=== PATIENT | female | born 1950 ===

== ENCOUNTER 2016-10-26 13:21 | Observation (INO) | payer MEDICARE, OTHER ==
[2016-10-26 13:21] VITALS: BMI 37.8
[2016-10-26] MEDS ORDERED: ceFAZolin 1 GM in Sodium Chloride 0.9% 100 ML IVPB STA (13:54)
[2016-10-26 14:43] LABS: BASO # 0.1 K/uL (0.0-0.2); BASO % 0.9 % (0.0-2.0); EOS # 0.2 K/uL (0.0-0.7); EOS % 3.7 % (0.0-4.0); HEMATOCRIT 43.6 % (34.0-47.0); LYMPH # 1.6 K/uL (1.0-4.3); LYMPH % 23.6 % (20.0-40.0); MEAN CELL VOLUME 85.2 fl (81.0-99.0); MEAN CORPUSCULAR HEMOGLOBIN 28.5 pg (27.0-31.0); MEAN CORPUSCULAR HGB CONC 33.4 g/dL (33.0-37.0); MEAN PLATELET VOLUME 8.9 fl (7.2-11.7); MONO # 0.4 K/uL (0.0-0.8); MONO % 6.1 % (0.0-10.0); NEUT # 4.4 K/uL (1.8-7.0); NEUT % 65.7 % (50.0-75.0); NRBC % 0.2 % (0.0-0.0); RED CELL DISTRIBUTION WIDTH 14.5 % (11.5-14.5); WHITE BLOOD COUNT 6.7 K/uL (4.8-10.8)
[2016-10-26 14:48] LABS: GFR AFRICAN-AMERICAN > 60
--- NOTE | 2016-10-26 14:50 | ED PDOC ---
HPI: Skin/Bite Injury Time Seen by Provider: 10/26/16 13:30 Chief Complaint (Nursing): Abnormal Skin Integrity Chief Complaint (Provider): Abnormal Skin Integrity History Per: Patient History/Exam Limitations: no limitations Onset/Duration Of Symptoms: Days (x2 days) Current Symptoms Are (Timing): Still Present Additional Complaint(s): 66 y/o female with a past history of diabetes (insulin dependant) who presents to the emergency department with a complaint of swelling and redness of the face x2 days. Patient states it first started at the chin but progressively getting worse and spreading throughout the face. Denies pain or itchiness. PMD: Dr. Denita Saxena MD Past Medical History Reviewed: Historical Data, Nursing Documentation, Vital Signs Vital Signs: Last Vital Signs Temp 96.9 F L 10/26/16 13:25 Pulse 89 10/26/16 13:25 Resp 21 10/26/16 13:25 BP 149/61 10/26/16 13:25 Pulse Ox 97 10/26/16 14:53 - Medical History PMH: Diabetes, HTN, Hypercholesterolemia - Surgical History Surgical History: Cholecystectomy - Family History Family History: States: Diabetes - Home Medications Home Medications: Ambulatory Orders Medication Instructions Recorded Ergocalciferol [Vitamin D2] 400 iu PO QWK 09/22/14 Glimepiride 4 mg PO BID 09/22/14 Lisinopril/Hydrochlorothiazide 1 tab PO DAILY 09/22/14 [Lisinopril-Hydrochlorothiazide 12.5 mg-10 mg] MetFORMIN [glucoPHAGE] 1,000 mg PO BID 09/22/14 Simvastatin 20 mg PO DAILY 09/22/14 Hydrocodone/Ibuprofen [Vicoprofen 1 tab PO Q6H #15 tab 01/08/15 7.5 mg-200 mg] traMADol [Ultram] 50 mg PO Q8 #20 tab 09/26/15 Methylprednisolone [Medrol Dose 4 mg PO DAILY #21 mg 07/12/16 Pack (21 tabs)] DiphenhydrAMINE [Benadryl] 1 - 2 cap PO Q6 PRN #30 cap 09/16/16 Methylprednisolone [Medrol Dose 4 mg PO DAILY #21 mg 09/16/16 Pack (21 tabs)] - Allergies Allergies/Adverse Reactions: Allergies Allergy/AdvReac Type Severity Reaction Status Date / Time acetaminophen [From Tylenol] Allergy RASH Verified 09/26/15 10:17 Review of Systems ROS Statement: Except As Marked, All Systems Reviewed And Found Negative Skin: Positive for: Other (Swelling and redness of the face and chin. Denies pain or itchiness) Physical Exam - Reviewed Nursing Documentation Reviewed: Yes Vital Signs Reviewed: Yes - Physical Exam Appears: Positive for: Non-toxic, No Acute Distress Skin: Negative for: Normal Color (Induration noted along the chin with redness noted along the mallar surfaces and above the right eye. No dental tenderness noted.) Neurologic/Psych: Positive for: Alert, Oriented - Laboratory Results Result Diagrams: 10/26/16 14:12 10/26/16 14:12 - ECG ECG Rhythm: Positive for: Sinus Rhythm (NSR 74BPM NO ECTOPY; NO ACUTE CHANGES) O2 Sat by Pulse Oximetry: 97 (RA) Pulse Ox Interpretation: Normal - Progress ED Course And Treament: ANCEF 1 GM IV X 1 DOS POTASSIUM ELEVATED. EKG: NSR 74BPM; NO ECTOPY; NO ACUTE CHANGES INSULIN 8 UNITS IV GIVEN; NS 1 LITER 500ML PER HOUR D/W MESERET SUMMERS NP Medical Decision Making Medical Decision Making: Time: 13:30 Initial impression: Cellulitis Initial plan: --COMP Metabolic Panel --Lact Acid, Plasma --CBC w/ differential --Ancef 1 gm/NS 100 ml Stat --Blood Culture Stat --Revaluation Scribe Attestation: Documented by Sommer Silva, acting as a scribe for Sherlyn marina PA-C. Provider Scribe Attestation: All medical record entries made by the Scribe were at my direction and personally dictated by me. I have reviewed the chart and agree that the record accurately reflects my personal performance of the history, physical exam, medical decision making, and the department course for this patient. I have also personally directed, reviewed, and agree with the discharge instructions and disposition. Disposition - Clinical Impression Clinical Impression: Cellulitis, Cellulitis, Hyperglycemia - Patient ED Disposition Is Patient to be Admitted: Yes - Disposition Disposition Time: 16:54 Condition: FAIR
[2016-10-26 15:11] LABS: CHLORIDE 97 mmol/L (98-107)
[2016-10-26 15:12] LABS: SODIUM 136 mmol/l (132-148)
[2016-10-26 15:14] LABS: ALB/GLOB RATIO 1.2 (1.0-2.1); ALKALINE PHOSPHATASE 85 U/L (38-126); AST/SGOT 34 U/L (14-36); BILIRUBIN,TOTAL 0.7 mg/dl (0.2-1.3); BLOOD UREA NITROGEN 20 mg/dl (7-17); CARBON DIOXIDE 28 mmol/L (22-30); TOTAL PROTEIN 7.2 G/DL (6.3-8.2)
[2016-10-26 15:15] LABS: ALT/SGPT 35 U/L (9-52); CALCIUM 9.5 mg/dL (8.4-10.2)
[2016-10-26 15:29] LABS: GLUCOSE,RANDOM 403 mg/dL (65-105)
[2016-10-26 15:30] LABS: POTASSIUM 5.6 MMOL/L (3.6-5.0)
[2016-10-26] MEDS ORDERED: Insulin Regular 100 units/ml IV STA (15:42)
[2016-10-26] MEDS ORDERED: Sodium Chloride 0.9% 1,000 ML IV STA (15:43)
[2016-10-26] MEDS ORDERED: Insulin Regular 100 units/ml ONE (15:47)
[2016-10-26] MEDS ORDERED: ceFAZolin 1 GM in Sodium Chloride 0.9% 100 ML IVPB SCH (17:00)
[2016-10-26 20:00] VITALS: RESP 20
[2016-10-26] MEDS ORDERED: Pneumococcal 23-Valent Vaccine IM ONE (21:00)
[2016-10-26] MEDS: Insulin Regular 100 units/ml SC SCH (22:12)
[2016-10-26] MEDS: ceFAZolin 1 GM in Sodium Chloride 0.9% 100 ML IVPB SCH (22:22)
[2016-10-27] MEDS: ceFAZolin 1 GM in Sodium Chloride 0.9% 100 ML IVPB SCH (06:02)
[2016-10-27] MEDS: Insulin Regular 100 units/ml SC SCH ×2 (07:08→12:19)
--- NOTE | 2016-10-27 07:35 | CP.PCM.HP ---
History of Present Illness - History of Present Illness History of Present Illness: pt admitted for facial cellulitis, was initially tx w/ topical steroids for rash to face. at present feels better. denies resp or swalling difficulties. no f/c, n/v/d. bw noted. no wbc. glucose elevated. 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 Present on Admission - Present on Admission Any Indicators Present on Admission: Yes History of Uncontrolled Diabetes: Yes Review of Systems - Integumentary Integumentary: As Per HPI, Erythema Past Patient History - Infectious Disease Hx of Infectious Diseases: None - Past Medical History & Family History Past Medical History?: Yes - Past Social History Smoking Status: Never Smoked - CARDIAC Hx Hypercholesterolemia: Yes Hx Hypertension: Yes - PULMONARY Hx Respiratory Disorders: No - NEUROLOGICAL Hx Neurological Disorder: No - HEENT Hx HEENT Problems: Yes - ENDOCRINE/METABOLIC Hx Endocrine Disorders: Yes - HEMATOLOGICAL/ONCOLOGICAL Hx Blood Disorders: No - INTEGUMENTARY Hx Dermatological Problems: No - MUSCULOSKELETAL/RHEUMATOLOGICAL Hx Musculoskeletal Disorders: No - GASTROINTESTINAL Hx Gastrointestinal Disorders: No - GENITOURINARY/GYNECOLOGICAL Hx Genitourinary Disorders: No - PSYCHIATRIC Hx Psychophysiologic Disorder: No - SURGICAL HISTORY Hx Cholecystectomy: Yes - ANESTHESIA Hx Anesthesia: Yes Hx Anesthesia Reactions: No Hx Malignant Hyperthermia: No Meds Home Medications: Home Medication List Medication Instructions Recorded Confirmed Type Cephalexin [cephalexin] 500 mg PO Q8 #18 cap 10/27/16 Rx Allergies/Adverse Reactions: Allergies Allergy/AdvReac Type Severity Reaction Status Date / Time acetaminophen [From Tylenol] Allergy RASH Verified 09/26/15 10:17 Physical Exam - Constitutional Appears: Well, Non-toxic, No Acute Distress - Head Exam Head Exam: ATRAUMATIC, NORMAL INSPECTION, NORMOCEPHALIC - Eye Exam Eye Exam: EOMI, Normal appearance, PERRL Pupil Exam: NORMAL ACCOMODATION, PERRL - ENT Exam ENT Exam: Mucous Membranes Moist, Normal Exam - Neck Exam Neck exam: Positive for: Normal Inspection - Respiratory Exam Respiratory Exam: Clear to Auscultation Bilateral, NORMAL BREATHING PATTERN - Cardiovascular Exam Cardiovascular Exam: REGULAR RHYTHM, RRR, +S1, +S2 - GI/Abdominal Exam GI & Abdominal Exam: Normal Bowel Sounds, Soft. absent: Tenderness - Extremities Exam Extremities exam: Positive for: full ROM, normal capillary refill, normal inspection, pedal pulses present - Back Exam Back exam: NORMAL INSPECTION - Neurological Exam Neurological exam: Alert, CN II-XII Intact, Normal Gait, Oriented x3, Reflexes Normal - Psychiatric Exam Psychiatric exam: Normal Affect, Normal Mood - Skin Skin Exam: Dry, Intact, Normal Color, Warm Results - Vital Signs Recent Vital Signs: Last Vital Signs Temp 98.4 F 10/26/16 19:59 Pulse 72 10/26/16 19:59 Resp 20 10/26/16 19:59 BP 99/62 L 10/26/16 19:59 Pulse Ox 96 10/26/16 19:59 - Labs Result Diagrams: 10/27/16 05:50 10/27/16 05:50 Labs: Laboratory Results - last 24 hr 10/26/16 10/26/16 10/26/16 16:42 17:59 21:47 Potassium 4.1 POC Glucose (mg/dL) 236 H 253 H 10/27/16 06:01 Potassium POC Glucose (mg/dL) 246 H Assessment & Plan (1) Facial cellulitis Assessment and Plan: ancef ivf pain control ?? dc today Status: Acute (2) DVT prophylaxis Assessment and Plan: scd ernestina e hose ambulation Status: Acute (3) Type 2 diabetes mellitus with hyperglycemia Assessment and Plan: riss fsbg, home meds Status: Acute Decision To Admit - Pt Status Changed To: Hospital Disposition Of: Observation - . Bed Request Type: Med/Surg Admitting Physician: John Sanabria
[2016-10-27 07:50] LABS: BASO % 0.5 % (0.0-2.0); EOS # 0.3 K/uL (0.0-0.7); HEMATOCRIT 43.5 % (34.0-47.0); LYMPH % 29.5 % (20.0-40.0); MEAN CELL VOLUME 85.2 fl (81.0-99.0); MEAN CORPUSCULAR HEMOGLOBIN 28.3 pg (27.0-31.0); MEAN CORPUSCULAR HGB CONC 33.2 g/dL (33.0-37.0); MEAN PLATELET VOLUME 9.7 fl (7.2-11.7); MONO # 0.5 K/uL (0.0-0.8); MONO % 6.8 % (0.0-10.0); NEUT % 59.2 % (50.0-75.0); NRBC % 0.1 % (0.0-0.0); RED CELL DISTRIBUTION WIDTH 14.5 % (11.5-14.5); WHITE BLOOD COUNT 6.7 K/uL (4.8-10.8)
[2016-10-27] MEDS ORDERED: GlipiZIDE 10 mg SR Tab PO SCH (08:00)
[2016-10-27 08:01] VITALS: BP 122/79; PULSE 68; TEMP 97.9; O2SAT 95
[2016-10-27 08:08] LABS: ALB/GLOB RATIO 1.1 (1.0-2.1); ALKALINE PHOSPHATASE 76 U/L (38-126); ALT/SGPT 29 U/L (9-52); AST/SGOT 28 U/L (14-36); BILIRUBIN,TOTAL 0.5 mg/dl (0.2-1.3); BLOOD UREA NITROGEN 18 mg/dl (7-17); CALCIUM 9.1 mg/dL (8.4-10.2); CARBON DIOXIDE 28 mmol/L (22-30); CHLORIDE 101 mmol/L (98-107); GFR AFRICAN-AMERICAN > 60; GLUCOSE,RANDOM 233 mg/dL (65-105); POTASSIUM 4.5 MMOL/L (3.6-5.0); SODIUM 142 mmol/l (132-148); TOTAL PROTEIN 6.9 G/DL (6.3-8.2)
[2016-10-27] MEDS ORDERED: Patient's Own Med (Lisinopril/Hydrochlorothiazide [Lisinopril-Hctz 10-12.5 Mg Tab] 1 TAB) PO SCH (09:00)
--- NOTE | 2016-10-27 13:11 | CP.PCM.DIS ---
Provider - Provider Date of Admission: 10/26/16 16:17 Attending physician: John Sanabria MD Time Spent in preparation of Discharge (in minutes): 15 Diagnosis - Discharge Diagnosis (1) Facial cellulitis Status: Acute (2) DVT prophylaxis Status: Acute (3) Type 2 diabetes mellitus with hyperglycemia Status: Acute Hospital Course - Lab Results Lab Results: Most Recent Lab Values WBC 6.7 K/uL (4.8-10.8) 10/27/16 05:50 RBC 5.11 Mil/uL (3.80-5.20) 10/27/16 05:50 Hgb 14.5 g/dL (12.0-16.0) 10/27/16 05:50 Hct 43.5 % (34.0-47.0) 10/27/16 05:50 MCV 85.2 fl (81.0-99.0) 10/27/16 05:50 MCH 28.3 pg (27.0-31.0) 10/27/16 05:50 MCHC 33.2 g/dL (33.0-37.0) 10/27/16 05:50 RDW 14.5 % (11.5-14.5) 10/27/16 05:50 Plt Count 160 K/uL (130-400) 10/27/16 05:50 MPV 9.7 fl (7.2-11.7) 10/27/16 05:50 Neut % (Auto) 59.2 % (50.0-75.0) 10/27/16 05:50 Lymph % (Auto) 29.5 % (20.0-40.0) 10/27/16 05:50 [place] % (Auto) 6.8 % (0.0-10.0) 10/27/16 05:50 Eos % (Auto) 4.0 % (0.0-4.0) 10/27/16 05:50 Baso % (Auto) 0.5 % (0.0-2.0) 10/27/16 05:50 Neut # 4.0 K/uL (1.8-7.0) 10/27/16 05:50 Lymph # 2.0 K/uL (1.0-4.3) 10/27/16 05:50 [place] # 0.5 K/uL (0.0-0.8) 10/27/16 05:50 Eos # 0.3 K/uL (0.0-0.7) 10/27/16 05:50 Baso # 0.0 K/uL (0.0-0.2) 10/27/16 05:50 Sodium 142 mmol/l (132-148) 10/27/16 05:50 Potassium 4.5 MMOL/L (3.6-5.0) 10/27/16 05:50 Chloride 101 mmol/L (98-107) 10/27/16 05:50 Carbon Dioxide 28 mmol/L (22-30) 10/27/16 05:50 Anion Gap 18 (10-20) 10/27/16 05:50 BUN 18 mg/dl (7-17) H 10/27/16 05:50 Creatinine 0.9 mg/dL (0.7-1.2) 10/27/16 05:50 Est GFR ( Amer) > 60 10/27/16 05:50 Est GFR (Non-Af Amer) > 60 10/27/16 05:50 POC Glucose (mg/dL) 365 mg/dL (65-110) H 10/27/16 10:42 Random Glucose 233 mg/dL (65-105) H 10/27/16 05:50 Lactic Acid 2.1 MMOL/L (0.7-2.1) 10/26/16 14:12 Calcium 9.1 mg/dL (8.4-10.2) 10/27/16 05:50 Total Bilirubin 0.5 mg/dl (0.2-1.3) 10/27/16 05:50 AST 28 U/L (14-36) 10/27/16 05:50 ALT 29 U/L (9-52) 10/27/16 05:50 Alkaline Phosphatase 76 U/L (38-126) 10/27/16 05:50 Total Protein 6.9 G/DL (6.3-8.2) 10/27/16 05:50 Albumin 3.6 g/dL (3.5-5.0) 10/27/16 05:50 Globulin 3.3 gm/dL (2.2-3.9) 10/27/16 05:50 Albumin/Globulin Ratio 1.1 (1.0-2.1) 10/27/16 05:50 Discharge Exam - Head Exam Head Exam: ATRAUMATIC, NORMAL INSPECTION, NORMOCEPHALIC Discharge Plan - Discharge Medications Prescriptions: Cephalexin [cephalexin] 500 mg PO Q8 #18 cap - Follow Up Plan Condition: GOOD Disposition: HOME/ ROUTINE Additional Instructions: patient cleared for discharge to home today , d/w Lakhwinder JAFFE f/u with pcp in 1 week pt . and family member at bedside instructed to return to ER if sx worsen, fever , chill, worsening rash Rx for Keflex provided final dx-facial cellulitis improving f/u pmd, rted prn, meds pe rmed rec Referrals: Denita Saxena, [facility] [Advanced Practice Nurse] -
--- NOTE | 2016-10-27 19:37 | CARD ---
APPROVED REPORT EKG Measurement Heart [id number] <Conclusion> Normal sinus rhythm Minimal voltage criteria for LVH, may be normal variant Borderline ECG
== END 2016-10-27 14:31 | disposition home or self-care (01) ==
LOC: H.ER 13:21 → H.ERHOLD 16:17 → H.MEDSURG1 17:13
PROVIDERS: ADMIT Family Medicine; ATTEND Family Medicine
DX: L03.211 Cellulitis of face (principal); E11.65 Type 2 diabetes mellitus with hyperglycemia; Z79.899 Other long term (current) drug therapy; I10 Essential (primary) hypertension; E78.00 Pure hypercholesterolemia, unspecified; Z23 Encounter for immunization; Z88.6 Allergy status to analgesic agent
CPT/HCPCS: 36415; 80053; 82948; 83605; 84132; 85025; 87040; 90732; 93005; 96360; 96361; 96365; 99283; G0009; G0378; J0690; J7040

== ENCOUNTER 2017-02-21 13:35 | Emergency (ER) | payer MEDICARE, OTHER ==
[2017-02-21 13:35] VITALS: BMI 37.8
[2017-02-21 14:06] VITALS: O2SAT 98
--- NOTE | 2017-02-21 14:47 | ED PDOC ---
HPI: Skin/Bite Injury Time Seen by Provider: 02/21/17 14:12 Chief Complaint (Nursing): Abnormal Skin Integrity Chief Complaint (Provider): facial rash History Per: Patient History/Exam Limitations: no limitations Onset/Duration Of Symptoms: Waxing/Waning (for 6 months), Worse Since (2 weeks) Location Of Injury: Right: Face, Left: Face, Anterior: Face Quality Of Symptoms: Itching, Swollen Additional Complaint(s): Facial rash ongoing for 6 months, with varying degrees of severity. Had been diagnosed with rosacea by a speech communication instructor in [place], but and it improved with topical steroid Also diagnosed with facial cellulitis in October, but no improvement after antibiotics. Intermittently improves with oral steroid but it causes her sugar to be very elevated. Last 2 weeks has developed increased swelling again, but also associated with itching with she has never had before. Denies fever, chills, throat/tongue swelling, chest pain or shortness of breath , or rash elsewhere. PMD: Dr Saxena Past Medical History Reviewed: Historical Data, Nursing Documentation, Vital Signs Vital Signs: Last Vital Signs Temp 98 F 02/21/17 14:04 Pulse 80 02/21/17 14:04 Resp 18 02/21/17 14:04 BP 146/66 02/21/17 14:04 Pulse Ox 98 02/21/17 14:52 - Medical History PMH: Diabetes, HTN, Hypercholesterolemia - Surgical History Surgical History: Cholecystectomy - Family History Family History: States: Diabetes - Social History Current smoker - smoking cessation education provided: No Alcohol: None - Home Medications Home Medications: Ambulatory Orders Medication Instructions Recorded Glimepiride 4 mg PO BID 09/22/14 Lisinopril/Hydrochlorothiazide 1 tab PO DAILY 09/22/14 [Lisinopril-Hctz 10-12.5 mg Tab] MetFORMIN [glucoPHAGE] 1,000 mg PO BID 09/22/14 Simvastatin 20 mg PO DAILY 09/22/14 Cephalexin [cephalexin] 500 mg PO Q8 #18 cap 10/27/16 Betamethasone Valerate 0.1% 1 appl TOP BID #1 tube 02/21/17 [Valisone] Clindamycin [Cleocin] 300 mg PO TID #30 cap 02/21/17 DiphenhydrAMINE [Benadryl] 25 mg PO Q6 PRN #30 cap 02/21/17 - Allergies Allergies/Adverse Reactions: Allergies Allergy/AdvReac Type Severity Reaction Status Date / Time acetaminophen [From Tylenol] Allergy RASH Verified 02/21/17 14:02 Review of Systems ROS Statement: Except As Marked, All Systems Reviewed And Found Negative (and as per HPI) Constitutional: Negative for: Fever, Chills ENT: Negative for: Mouth Swelling, Throat Pain Cardiovascular: Negative for: Chest Pain, Light Headedness Respiratory: Negative for: Cough, Shortness of Breath Skin: Positive for: Rash Physical Exam - Reviewed Nursing Documentation Reviewed: Yes Vital Signs Reviewed: Yes - Physical Exam Appears: Positive for: Non-toxic, No Acute Distress Head Exam: Positive for: ATRAUMATIC, NORMOCEPHALIC Skin: Positive for: Warm, Dry, Rash (Blanching erythematous edematous rash to chin, nose, malar area and mid forehead with indurated areas especially to chin , nasal bridge and midline forehead. No tenderness. No fluctuance. No discrete lesions/papules.) Eye Exam: Positive for: EOMI, PERRL ENT: Negative for: Pharyngeal Erythema, Tonsillar Exudate Neck: Positive for: Painless ROM, Supple Cardiovascular/Chest: Positive for: Regular Rate, Rhythm, Chest Non Tender. Negative for: Murmur Respiratory: Positive for: Normal Breath Sounds. Negative for: Respiratory Distress Extremity: Positive for: Normal ROM. Negative for: Pedal Edema Lymphatic: Negative for: Adenopathy Neurologic/Psych: Positive for: Alert. Negative for: Motor/Sensory Deficits - Laboratory Results Result Diagrams: 02/21/17 15:33 02/21/17 15:33 Interpretation Of Abn Labs: Minimally elevated BUN and glucose. No emergently critical lab abnormalities - ECG O2 Sat by Pulse Oximetry: 98 Pulse Ox Interpretation: Normal Medical Decision Making Medical Decision Making: Facial erythema/edema/induration ongoing for months with unclear etiology. Will treat as both inflammatory and infectious process for now, but pt needs to revisit speech communication instructor for further management. ANKITA pt findings and plan of care. Disposition - Clinical Impression Clinical Impression: Facial rash Counseled Patient/Family Regarding: Studies Performed, Diagnosis, Need For Followup, Rx Given - Disposition Referrals: Sophia Saxena MD [Family Provider] - [facility] [Outside] (VISITA UN SPECIALIST DE PIEL EN 2-3 LAZO POR MAS EVALUACIONES Y TRATIMIENTE.) Disposition: Routine/Home Disposition Time: 16:19 Condition: STABLE Additional Instructions: IT IS VERY IMPORTANT YOU SEE A RIP/MOULD OPERATOR FOR FURTHER TREATMENT OF YOUR CONDITION CHECK YOUR SUGAR FREQUENTLY FOR THE NEXT 2 WEEKS BECAUSE STEROIDC CAN CAUSE INCREASE IN SUGAR FOLLOW STRICT DIABETIC DIET FOR NEXT 2 WEEKS. ES MUY IMPORTANTE ARIC UN DERMATLOGO PARA TRATAMIENTO ADICIONAL DE RANDALL CONDICIN COMPRUEBE RANDALL AZCAR FRECUENTEMENTE POR LAS PROXIMAS 2 SEMANAS PORQUE ESTEROIDES PUEDE CAUSAR AUMENTO EN AZCAR SIGUE DAVID DIETA DIABTICA ESTRICTA PARA LAS PROXIMAS 2 SEMANAS. Prescriptions: Betamethasone Valerate 0.1% [Valisone] 1 appl TOP BID #1 tube Clindamycin [Cleocin] 300 mg PO TID #30 cap DiphenhydrAMINE [Benadryl] 25 mg PO Q6 PRN #30 cap PRN Reason: Itching / Pruritus Instructions: Dermatitis (ED) Print Language: NIGERIAN
[2017-02-21] MEDS ORDERED: DiphenhydrAMINE 50 mg/ml Inj IVP STA (14:56)
[2017-02-21] MEDS ORDERED: Clindamycin 600 MG in Sodium Chloride 0.9% 100 ML IVPB STA (14:56)
[2017-02-21] MEDS ORDERED: DiphenhydrAMINE 50 mg/ml Inj ONE (15:38)
[2017-02-21 15:41] LABS: BASO # 0.1 K/uL (0.0-0.2); BASO % 1.2 % (0.0-2.0); EOS # 0.2 K/uL (0.0-0.7); EOS % 3.8 % (0.0-4.0); HEMATOCRIT 41.7 % (34.0-47.0); LYMPH # 1.6 K/uL (1.0-4.3); LYMPH % 25.1 % (20.0-40.0); MEAN CELL VOLUME 84.7 fl (81.0-99.0); MEAN CORPUSCULAR HEMOGLOBIN 28.2 pg (27.0-31.0); MEAN CORPUSCULAR HGB CONC 33.3 g/dL (33.0-37.0); MEAN PLATELET VOLUME 8.4 fl (7.2-11.7); MONO # 0.4 K/uL (0.0-0.8); MONO % 6.5 % (0.0-10.0); NEUT # 4.1 K/uL (1.8-7.0); NEUT % 63.4 % (50.0-75.0); RED CELL DISTRIBUTION WIDTH 14.1 % (11.5-14.5); WHITE BLOOD COUNT 6.5 K/uL (4.8-10.8)
[2017-02-21 15:58] LABS: ALB/GLOB RATIO 1.2 (1.0-2.1); ALKALINE PHOSPHATASE 62 U/L (38-126); ALT/SGPT 39 U/L (9-52); AST/SGOT 38 U/L (14-36); BILIRUBIN,TOTAL 0.7 mg/dl (0.2-1.3); BLOOD UREA NITROGEN 23 mg/dl (7-17); CALCIUM 9.2 mg/dL (8.4-10.2); CARBON DIOXIDE 23 mmol/L (22-30); CHLORIDE 104 mmol/L (98-107); GFR AFRICAN-AMERICAN > 60; GLUCOSE,RANDOM 162 mg/dL (65-105); SODIUM 137 mmol/l (132-148); TOTAL PROTEIN 7.5 G/DL (6.3-8.2)
[2017-02-21 16:01] LABS: POTASSIUM 4.9 MMOL/L (3.6-5.0)
[2017-02-21 16:53] VITALS: BP 140/71; PULSE 72; RESP 16; TEMP 98
== END 2017-02-21 16:53 | disposition home or self-care (01) ==
LOC: H.ER 13:35
DX: L03.211 Cellulitis of face (principal); E11.9 Type 2 diabetes mellitus without complications; E78.00 Pure hypercholesterolemia, unspecified; I10 Essential (primary) hypertension; Z79.84 Long term (current) use of oral hypoglycemic drugs
CPT/HCPCS: 80053; 82948; 83516; 83605; 85025; 86038; 86160; 86235; 86376; 86431; 87040; 96374; 96375; 99282; J1200; J2930

== ENCOUNTER 2017-04-15 12:30 | Emergency (ER) | payer MEDICARE, OTHER ==
[2017-04-15 12:31] VITALS: BMI 37.8
[2017-04-15 12:38] VITALS: BP 158/63; PULSE 98; RESP 16; TEMP 98; O2SAT 98
--- NOTE | 2017-04-15 12:56 | ED PDOC ---
HPI: Allergic Reaction Time Seen by Provider: 04/15/17 12:38 Chief Complaint (Nursing): Allergic Reaction Chief Complaint (Provider): Rash History Per: Patient History/Exam Limitations: no limitations Onset/Duration Of Symptoms: Days (x2 months) Additional Complaint(s): Elisha Allen is a 66 year old female presenting to the ED for an evaluation of a red rash on her face occurring for 2 months, reporting this rash has been coming and going chronically for 9 months prior to arrival. She states she has previously been admitted for cellulitis and was on IV antibiotics. She is currently on Zyrtec, topical fungal medication, and doxycycline prescribed by her caregivers homecare, taken without relief. The patient is complaining of itchiness which prompted her ED visit today. PMD: Abel Leyva MD Past Medical History Reviewed: Historical Data, Nursing Documentation, Vital Signs Vital Signs: Last Vital Signs Temp 98.0 F 04/15/17 12:34 Pulse 98 H 04/15/17 12:34 Resp 16 04/15/17 12:34 BP 158/63 H 04/15/17 12:34 Pulse Ox 98 04/15/17 12:34 - Medical History PMH: Diabetes, HTN, Hypercholesterolemia - Surgical History Surgical History: Cholecystectomy - Family History Family History: States: Diabetes - Home Medications Home Medications: Ambulatory Orders Medication Instructions Recorded Glimepiride 4 mg PO BID 09/22/14 Lisinopril/Hydrochlorothiazide 1 tab PO DAILY 09/22/14 [Lisinopril-Hctz 10-12.5 mg Tab] MetFORMIN [glucoPHAGE] 1,000 mg PO BID 09/22/14 Simvastatin 20 mg PO DAILY 09/22/14 Cephalexin [cephalexin] 500 mg PO Q8 #18 cap 10/27/16 Betamethasone Valerate 0.1% 1 appl TOP BID #1 tube 02/21/17 [Valisone] Clindamycin [Cleocin] 300 mg PO TID #30 cap 02/21/17 DiphenhydrAMINE [Benadryl] 25 mg PO Q6 PRN #30 cap 02/21/17 hydrOXYzine Pamoate [Vistaril] 50 mg PO BID PRN #15 cap 04/15/17 predniSONE [predniSONE Tab] 20 mg PO DAILY #12 tab 09/24/17 - Allergies Allergies/Adverse Reactions: Allergies Allergy/AdvReac Type Severity Reaction Status Date / Time acetaminophen [From Tylenol] Allergy RASH Verified 02/21/17 14:02 Review of Systems ROS Statement: Except As Marked, All Systems Reviewed And Found Negative Skin: Positive for: Rash (associated with itchiness to face) Physical Exam - Reviewed Nursing Documentation Reviewed: Yes Vital Signs Reviewed: Yes - Physical Exam Appears: Positive for: Non-toxic, No Acute Distress Head Exam: Positive for: ATRAUMATIC, NORMOCEPHALIC Skin: Positive for: Rash (pruritic rash to face) Neurologic/Psych: Positive for: Alert, Oriented - ECG O2 Sat by Pulse Oximetry: 98 (RA) Pulse Ox Interpretation: Normal Disposition - Clinical Impression Clinical Impression: Rash - Disposition Disposition Time: 13:25 Condition: STABLE Additional Instructions: Continue current medications Prescriptions: hydrOXYzine Pamoate [Vistaril] 50 mg PO BID PRN #15 cap PRN Reason: Itching / Pruritus predniSONE [predniSONE Tab] 20 mg PO DAILY #12 tab Instructions: Dermatitis (ED) Forms: [employer] (Tajik) Print Language: MALTESE Medical Decision Making Medical Decision Making: Time: 12:38 Impression: Pruritic rash to face Plan: * SOLU-Medrol 125 mg IM * Vistaril 50 mg PO Discussed with pt to take medications as prescribed and to follow up with caregivers homecare. Scribe Attestation: Documented by Maria E Fuller, acting as a scribe for Gloria Smith PA-C. Provider Scribe Attestation: All medical record entries made by the Scribe were at my direction and personally dictated by me. I have reviewed the chart and agree that the record accurately reflects my personal performance of the history, physical exam, medical decision making, and the department course for this patient. I have also personally directed, reviewed, and agree with the discharge instructions and disposition.
== END 2017-04-15 13:41 | disposition home or self-care (01) ==
LOC: H.ER 12:30
DX: T78.40XA Allergy, unspecified, initial encounter (principal)
CPT/HCPCS: 96372; 99282; J2930; Q0177

== ENCOUNTER 2018-05-11 08:28 | Emergency (ER) | payer OTHER ==
[2018-05-11 08:37] VITALS: BMI 40.1
[2018-05-11 10:14] LABS: BASO # 0.1 K/uL (0.0-0.2); BASO % 1.1 % (0.0-2.0); EOS # 0.3 K/uL (0.0-0.7); HEMOGLOBIN 15.1 g/dL (12.0-16.0); LYMPH # 1.8 K/uL (1.0-4.3); LYMPH % 26.4 % (20.0-40.0); MEAN CELL VOLUME 86.6 fl (81.0-99.0); MEAN CORPUSCULAR HEMOGLOBIN 28.7 pg (27.0-31.0); MEAN CORPUSCULAR HGB CONC 33.1 g/dL (33.0-37.0); MEAN PLATELET VOLUME 8.1 fl (7.2-11.7); MONO # 0.4 K/uL (0.0-0.8); MONO % 6.5 % (0.0-10.0); NEUT # 4.1 K/uL (1.8-7.0); NRBC % 0.2 % (0.0-0.0); RBC 5.26 Mil/uL (3.80-5.20); RED CELL DISTRIBUTION WIDTH 14.7 % (11.5-14.5); WHITE BLOOD COUNT 6.7 K/uL (4.8-10.8)
[2018-05-11 10:17] LABS: BLOOD UREA NITROGEN 25 mg/dl (7-17); CALCIUM 9.5 mg/dL (8.4-10.2); GFR NON-AFRICAN AMERICAN 50
--- NOTE | 2018-05-11 10:37 | ED PDOC ---
HPI: Back Time Seen by Provider: 05/11/18 08:54 Chief Complaint (Nursing): Back Pain Chief Complaint (Provider): Back Pain History Per: Patient History/Exam Limitations: no limitations Onset/Duration Of Symptoms: Days (x1 month ) Current Symptoms Are (Timing): Constant Additional Complaint(s): 67 year old female with a history of hypertension and dm presents to the ED with constant lower back pain onset one month. Patient reports pain is worse with all movement, she is only comfortable when sitting. She took Advil for pain with little relief. Patient denies fever, abdominal pain, vomiting, urinary symptoms, or any other medical complaints. She has not seen a doctor for pain. PMD: Dr. Corona, [facility] Past Medical History Reviewed: Historical Data, Nursing Documentation, Vital Signs Vital Signs: Last Vital Signs Temp 97 F L 05/11/18 08:35 Pulse 81 05/11/18 08:35 Resp 20 05/11/18 08:35 BP 117/72 05/11/18 08:35 Pulse Ox 98 05/11/18 08:35 - Medical History PMH: Arthritis, Diabetes, HTN, Hypercholesterolemia - Surgical History Surgical History: Cholecystectomy - Family History Family History: States: Diabetes - Home Medications Home Medications: Ambulatory Orders Medication Instructions Recorded RX: Glimepiride 4 mg PO BID 09/22/14 RX: Lisinopril/Hydrochlorothiazide 1 tab PO DAILY 09/22/14 [Lisinopril-Hctz 10-12.5 mg Tab] RX: MetFORMIN [glucoPHAGE] 1,000 mg PO BID 09/22/14 RX: Simvastatin 20 mg PO DAILY 09/22/14 Cephalexin [cephalexin] 500 mg PO Q8 #18 cap 10/27/16 DiphenhydrAMINE [Benadryl] 25 mg PO Q6 PRN #30 cap 02/21/17 RX: Betamethasone Valerate 0.1% 1 appl TOP BID #1 tube 02/21/17 [Valisone] RX: Clindamycin [Cleocin] 300 mg PO TID #30 cap 02/21/17 RX: predniSONE [predniSONE Tab] 20 mg PO DAILY #12 tab 04/15/17 hydrOXYzine Pamoate [Vistaril] 50 mg PO BID PRN #15 cap 04/15/17 Cyclobenzaprine [Cyclobenzaprine 10 mg PO TID #15 tab 05/11/18 HCl] RX: Naproxen 375 mg PO Q8 PRN #21 tablet 05/11/18 - Allergies Allergies/Adverse Reactions: Allergies Allergy/AdvReac Type Severity Reaction Status Date / Time acetaminophen [From Tylenol] Allergy RASH Verified 04/13/18 13:27 Review of Systems ROS Statement: Except As Marked, All Systems Reviewed And Found Negative Musculoskeletal: Positive for: Back Pain (lower) Physical Exam - Reviewed Nursing Documentation Reviewed: Yes Vital Signs Reviewed: Yes - Physical Exam Appears: Positive for: Non-toxic, No Acute Distress Head Exam: Positive for: ATRAUMATIC, NORMOCEPHALIC Skin: Positive for: Normal Color, Warm, Dry Eye Exam: Positive for: Normal appearance, EOMI, PERRL Neck: Positive for: Normal, Painless ROM, Supple Cardiovascular/Chest: Positive for: Regular Rate, Rhythm. Negative for: Murmur Respiratory: Positive for: Normal Breath Sounds. Negative for: Respiratory Distress Gastrointestinal/Abdominal: Positive for: Normal Exam, Soft. Negative for: Tenderness Back: Positive for: Muscle Spasm, Other (Tenderness to palpation in paraspinal region of lower lumbar). Negative for: L CVA Tenderness, R CVA Tenderness Extremity: Positive for: Normal ROM (upper and lower). Negative for: Pedal Edema, Deformity - Laboratory Results Result Diagrams: 05/11/18 10:03 05/11/18 10:03 - ECG O2 Sat by Pulse Oximetry: 98 (RA) Pulse Ox Interpretation: Normal - Progress Re-evaluation Time: 12:00 Condition: Re-examined, Improved Medical Decision Making Medical Decision Making: Time: 922 Initial Impression: Acute chronic back pain Differential diagnoses include but are not limited: lumbar spine DJD, lumbar radiculopathy, arthritis, other conditions considered but not listed. Initial Plan: --CT lumbar spine --BMP --Urine dip --CBC with differentials --Erythrocyte sedimentation rate --Chest x-ray --Flexeril 10 mg PO --Morphine 2 mg IVP Time: 1036 Chest x-ray: FINDINGS: LUNGS: Minimal bibasilar atelectasis PLEURA: No significant pleural effusion identified, no pneumothorax apparent. CARDIOVASCULAR: Mild aortic atherosclerotic calcification present Normal. OSSEOUS STRUCTURES: No significant abnormalities. VISUALIZED UPPER ABDOMEN: Normal. OTHER FINDINGS: None. IMPRESSION: Minimal bibasilar atelectasis. Time: [address] FINDINGS: VERTEBRAE: No acute compression fractures nor retropulsed fragments. Minor chronic appearing anterior stature loss of several lower thoracic and upper lumbar segments felt to be degenerative in origin. Vertebral bodies otherwise exhibit relatively normal stature. Vertebral bodies and facets normally aligned. DISCS/SPINAL CANAL/NEURAL FORAMINA: L1-2: Mild posterior disc space narrowing. No disc herniation or significant disc bulge. L2-3: There is mild disc space narrowing with tiny chronic appearing Schmorl's node changes. Small broad-based disc bulge is present and results in some flattening of the ventral borders of the thecal sac however the overall central canal appears adequate. L3-4: Minor posterior disc space narrowing with mild broad-based bulge of the posterior annulus that extends slightly into the proximal inferior borders of both exit foramina.. No disc herniation L4-5: Disc space height maintained. No disc herniation however minor broad- based disc bulging changes most pronounced within the proximal inferior margins of both exit foramina. Facet joints mildly prominent. Central canal and exit foramina appear adequate . L5-S1: Disc space height relatively maintained. Minor broad-based bulge of the posterior annulus is present slightly larger on the left than right. The overall central bony canal appears adequate without evidence of compressive effects on the thecal sac or exiting nerve roots. Facet joints slightly overgrown. Left exit foramen is marginal to minimally narrowed. Right exit foramen is adequate.. PARASPINAL SOFT TISSUES: Unremarkable. OTHER FINDINGS: There is mild aortic atherosclerotic calcification and mural plaque IMPRESSION: No acute fractures. Mild multilevel degenerative spondylosis without significant central canal or foraminal stenosis. ----- Scribe Attestation: Documented by Mickie Fuller, acting as a scribe for Connie Partida MD Provider Scribe Attestation: All medical record entries made by the Scribe were at my direction and personally dictated by me. I have reviewed the chart and agree that the record accurately reflects my personal performance of the history, physical exam, medical decision making, and the department course for this patient. I have also personally directed, reviewed, and agree with the discharge instructions and dis position. Disposition - Clinical Impression Clinical Impression: Back pain - Patient ED Disposition Is Patient to be Admitted: No Doctor Will See Patient In The: Office Counseled Patient/Family Regarding: Studies Performed, Diagnosis, Need For Followup - Disposition Referrals: [facility] [Outside] Disposition: Routine/Home Disposition Time: 12:00 Condition: GOOD Additional Instructions: MADIHA ERYNAGA, thank you for letting us take care of you today. Your provider was Connie Partida MD and you were treated for BACK PAIN. The emergency medical care you received today was directed at your acute symptoms. If you were prescribed any medication, please fill it and take as directed. It may take several days for your symptoms to resolve. Return to the Emergency Department if your symptoms worsen, do not improve, or if you have any other problems. Please contact your doctor or call one of the physicians/clinics you have been referred to that are listed on the Patient Visit Information form that is included in your discharge packet. Bring any paperwork you were given at discharge with you along with any medications you are taking to your follow up visit. Our treatment cannot replace ongoing medical care by a primary care provider outside of the emergency department. Thank you for allowing the [facility] team to be part of your care today. If you had an X-Ray or CT scan: A Radiologist will review the ED reading if any change in treatment is needed we will contact you. If you had a blood, urine, or wound culture: It will take several days for the results, if any change in treatment is needed we will contact you. If you had an STI test: It will take 48 hours for the results. Please call after 1 week if you have not heard back. Prescriptions: Cyclobenzaprine [Cyclobenzaprine HCl] 10 mg PO TID #15 tab RX: Naproxen 375 mg PO Q8 PRN #21 tablet PRN Reason: Pain, Moderate (4-7) Instructions: Low Back Pain in Adults Forms: [employer] (Palauan) Print Language: ARMENIAN
--- NOTE | 2018-05-11 10:40 | RAD ---
Date of service: 05/11/2018 HISTORY: back pain COMPARISON: Comparison chest 10/22/2013 FINDINGS: LUNGS: Minimal bibasilar atelectasis PLEURA: No significant pleural effusion identified, no pneumothorax apparent. CARDIOVASCULAR: Mild aortic atherosclerotic calcification present Normal. OSSEOUS STRUCTURES: No significant abnormalities. VISUALIZED UPPER ABDOMEN: Normal. OTHER FINDINGS: None. IMPRESSION: Minimal bibasilar atelectasis.
--- NOTE | 2018-05-11 10:57 | CT ---
Date of service: 05/11/2018 PROCEDURE: CT Lumbar Spine without contrast HISTORY: Back pain no injury COMPARISON: None available. TECHNIQUE: Axial computed tomography images were obtained of the lumbar spine without the use of intravenous contrast. Coronal and sagittal reformatted images were created and reviewed. Radiation dose: Total exam DLP = 1601.11 mGy-cm. This CT exam was performed using one or more of the following dose reduction techniques: Automated exposure control, adjustment of the mA and/or kV according to patient size, and/or use of iterative reconstruction technique. FINDINGS: VERTEBRAE: No acute compression fractures nor retropulsed fragments. Minor chronic appearing anterior stature loss of several lower thoracic and upper lumbar segments felt to be degenerative in origin. Vertebral bodies otherwise exhibit relatively normal stature. Vertebral bodies and facets normally aligned. DISCS/SPINAL CANAL/NEURAL FORAMINA: L1-2: Mild posterior disc space narrowing. No disc herniation or significant disc bulge. L2-3: There is mild disc space narrowing with tiny chronic appearing Schmorl's node changes. Small broad-based disc bulge is present and results in some flattening of the ventral borders of the thecal sac however the overall central canal appears adequate. L3-4: Minor posterior disc space narrowing with mild broad-based bulge of the posterior annulus that extends slightly into the proximal inferior borders of both exit foramina.. No disc herniation L4-5: Disc space height maintained. No disc herniation however minor broad-based disc bulging changes most pronounced within the proximal inferior margins of both exit foramina. Facet joints mildly prominent. Central canal and exit foramina appear adequate . L5-S1: Disc space height relatively maintained. Minor broad-based bulge of the posterior annulus is present slightly larger on the left than right. The overall central bony canal appears adequate without evidence of compressive effects on the thecal sac or exiting nerve roots. Facet joints slightly overgrown. Left exit foramen is marginal to minimally narrowed. Right exit foramen is adequate.. PARASPINAL SOFT TISSUES: Unremarkable. OTHER FINDINGS: There is mild aortic atherosclerotic calcification and mural plaque IMPRESSION: No acute fractures. Mild multilevel degenerative spondylosis without significant central canal or foraminal stenosis. .
[2018-05-11 12:52] VITALS: BP 128/80; PULSE 84; RESP 18; TEMP 97.8
[2018-05-12 10:49] VITALS: O2SAT 98
== END 2018-05-11 12:35 | disposition home or self-care (01) ==
LOC: H.ER 08:28
DX: M54.5 Low back pain (principal); E11.9 Type 2 diabetes mellitus without complications; I10 Essential (primary) hypertension; G89.29 Other chronic pain; Z79.84 Long term (current) use of oral hypoglycemic drugs; E78.00 Pure hypercholesterolemia, unspecified
CPT/HCPCS: 71045; 72131; 80048; 85025; 85651; 96374; 99284; J2270

== ENCOUNTER 2018-05-20 08:36 | Day surgery (SDC) | payer OTHER ==
[2018-05-20 09:44] VITALS: BMI 39.0
[2018-05-20] MEDS ORDERED: Lactated Ringer's 500 ML IV ONE ×2 (09:54→11:03)
[2018-05-20] MEDS ORDERED: Propofol 10 mg/ml Inj (20 ML) ONE (11:04)
[2018-05-20 11:49] VITALS: PULSE 82; RESP 17; TEMP 96.9; O2SAT 95
[2018-05-20 11:52] VITALS: BP 104/56
== END 2018-05-20 12:29 | disposition home or self-care (01) ==
LOC: H.ENDO 08:36
PROVIDERS: ATTEND Internal Medicine Gastroenterology
DX: Z12.11 Encounter for screening for malignant neoplasm of colon (principal); K64.8 Other hemorrhoids; K57.30 Diverticulosis of large intestine without perforation or abscess without bleeding
CPT/HCPCS: 45378; J2001; J2704; J7120